=== PATIENT | female | born 1935 | race African-American/Black ===

== ENCOUNTER 2020-05-20 15:47 | Emergency (ER) | payer MEDICARE, BC ==
[~2020-05-20] VITALS: Ht 167.6 cm; Wt 80.0 kg
[2020-05-20] MEDS ORDERED: IV NORMAL SALINE 1000ML BAG 1,000 ML IV ONE (16:00)
[2020-05-20] MEDS ORDERED: ACETAMINOPHEN 500 MG TABLET PO ONE (16:00)
[2020-05-20] MEDS ORDERED: cefTRIAXone IV Push 1 GM VIAL. IVP ONE (16:00)
--- NOTE | 2020-05-20 16:06 | PHYS DOC ---
Past Medical History Past Medical History: Dementia Drug Use: None Social History Narrative: from [facility] General Adult EDM: Chief Complaint: URINARY FREQUENCY HPI: HPI: Patient is a 85 year old female who arrives via EMS from [facility] with a chief complaint of malodorous urine. Patient has a history of dementia therefore history, physical review of systems are all limited due to altered mental status. Patient does complain of some lower abdominal pain on exam. But she is unable to quantify or qualify the pain. Patient was found to have a low-grade temperature of 99 earlier today. Patient had 2 - Covid test within the last 3 days. Review of Systems: Review of Systems: Constitutional: Nursing facility reports low-grade temperature of 99 Eyes: Denies change in visual acuity. [] HENT: Denies nasal congestion or sore throat. [] Respiratory: Denies cough or shortness of breath. [] Cardiovascular: Denies chest pain or edema. [] GI: Patient complains of lower abdominal pain but no vomiting or diarrhea : Patient has malodorous urine Musculoskeletal: Denies back pain or joint pain. [] Integument: Denies rash. [] Neurologic: Denies headache, focal weakness or sensory changes. [] Endocrine: Denies polyuria or polydipsia. [] Lymphatic: Denies swollen glands. [] Psychiatric: Denies depression or anxiety. [] Heart Score: Risk Factors: Risk Factors: DM, Current or recent (<one month) smoker, HTN, HLP, family history of CAD, obesity. Risk Scores: Score 0 - 3: 2.5% MACE over next 6 weeks - Discharge Home Score 4 - 6: 20.3% MACE over next 6 weeks - Admit for Clinical Observation Score 7 - 10: 72.7% MACE over next 6 weeks - Early Invasive Strategies Current Medications: Current Medications Medications (Trade) Dose Ordered Sig/Evans Start Time Stop Time Status Last Admin Dose Admin Acetaminophen (Tylenol) 1,000 mg 1X ONCE 05/20/20 16:00 05/20/20 16:01 UNV Ceftriaxone Sodium (Rocephin) 1 gm 1X ONCE 05/20/20 16:00 05/20/20 16:01 UNV Sodium Chloride 1,000 ml @ 1,000 mls/hr 1X ONCE 05/20/20 16:00 05/20/20 16:59 UNV Physical Exam: PE: Constitutional: Well developed, well nourished, no acute distress, non-toxic appearance. [] HENT: Normocephalic, atraumatic, bilateral external ears normal, no trismus nose normal. [] Eyes: PERRLA, EOMI, conjunctiva normal, no discharge. [] Neck: Normal range of motion, no tenderness, supple, no stridor. [] Cardiovascular:Heart rate regular rhythm, peripheral pulse intact cap refills less than 2 seconds Lungs & Thorax: Bilateral breath sounds clear, no respiratory distress Abdomen: Soft with lower abdominal tenderness without guarding or rebound, no masses, no pulsatile masses. [] Skin: Warm, dry, no erythema, no rash. [] Back: No tenderness, no CVA tenderness. [] Extremities: No tenderness, no cyanosis, no clubbing, ROM intact, no edema. [] Neurologic: Alert and oriented X 1, normal motor function, normal sensory function, no focal deficits noted. [] Psychologic: Affect normal, judgement normal, mood normal. [] Current Patient Data: Labs: Laboratory Tests Test 05/20/20 16:18 05/20/20 16:30 Urine Collection Type Unknown Urine Color Yellow Urine Clarity Clear Urine pH 5.5 Urine Specific [place] 1.015 Urine Protein 30 mg/dL Urine Glucose (UA) Negative mg/dL Urine Ketones (Stick) Negative mg/dL Urine Blood Moderate Urine Nitrite Negative Urine Bilirubin Negative Urine Urobilinogen Dipstick 0.2 mg/dL Urine Leukocyte Esterase Negative Urine RBC 0 /HPF Urine WBC 0 /HPF Urine Squamous Epithelial Cells Few /LPF Urine Bacteria 0 /HPF Urine Mucus Mod /LPF White Blood Count 4.9 x10^3/uL Red Blood Count 4.33 x10^6/uL Hemoglobin 13.3 g/dL Hematocrit 40.2 % Mean Corpuscular Volume 93 fL Mean Corpuscular Hemoglobin 31 pg Mean Corpuscular Hemoglobin Concent 33 g/dL Red Cell Distribution Width 16.7 % Platelet Count 132 x10^3/uL Neutrophils (%) (Auto) 76 % Lymphocytes (%) (Auto) 17 % Monocytes (%) (Auto) 6 % Eosinophils (%) (Auto) 1 % Basophils (%) (Auto) 1 % Neutrophils # (Auto) 3.7 x10^3/uL Lymphocytes # (Auto) 0.8 x10^3/uL Monocytes # (Auto) 0.3 x10^3/uL Eosinophils # (Auto) 0.0 x10^3/uL Basophils # (Auto) 0.0 x10^3/uL Sodium Level 141 mmol/L Potassium Level 4.7 mmol/L Chloride Level 105 mmol/L Carbon Dioxide Level 27 mmol/L Anion Gap 9 Blood Urea Nitrogen 32 mg/dL Creatinine 1.9 mg/dL Estimated GFR (Cockcroft-Gault) 25.2 BUN/Creatinine Ratio 17 Glucose Level 95 mg/dL Lactic Acid Level 1.2 mmol/L Calcium Level 10.3 mg/dL Total Bilirubin 0.4 mg/dL Aspartate Amino Transf (AST/SGOT) 30 U/L Alanine Aminotransferase (ALT/SGPT) 48 U/L Alkaline Phosphatase 94 U/L Total Protein 8.4 g/dL Albumin 4.4 g/dL Albumin/Globulin Ratio 1.1 Lipase 84 U/L Current Medications Medications (Trade) Dose Ordered Sig/Evans Route PRN Reason Start Time Stop Time Status Last Admin Dose Admin Ceftriaxone Sodium (Rocephin) 1 gm 1X ONCE IVP 05/20/20 16:00 05/20/20 16:47 DC Sodium Chloride 1,000 ml @ 1,000 mls/hr 1X ONCE IV 05/20/20 16:00 05/20/20 16:59 DC Acetaminophen (Tylenol) 1,000 mg 1X ONCE PO 05/20/20 16:00 05/20/20 16:47 DC Vital Signs: Vital Signs Date Time Temp Pulse Resp B/P (MAP) Pulse Ox O2 Delivery O2 Flow Rate FiO2 05/20/20 16:07 98.5 18 130/89 (103) 100 Room Air 98.5 EKG: EKG: EKG interpreted by me normal sinus rhythm with rate 82 left axis deviation, left anterior block, right bundle branch block, nonspecific ST changes, QTC of 492 [] Radiology/Procedures: Radiology/Procedures: [][facility] [address] [place] [address] IMAGING REPORT Signed PATIENT: LARRY DAVID ACCOUNT: [id number] : 1935 LOCATION: ER AGE: 85 SEX: F EXAM STATUS: PRE ER ORD. PHYSICIAN: SANTINO ROD MD REASON: fever 16 PROCEDURE: PORTABLE CHEST 1V Examination: XR CHEST 1V History: Reason: fever Comparison/Correlation: None Findings: Portable upright frontal view of the chest was obtained. Heart size and pulmonary vascular structures are unremarkable. No infiltrate or effusion. No pneumothorax. Bony structures are unremarkable. Impression: No active disease. Electronically signed by: Abdirizak Hudson MD (05/20/2020 4:48 PM) [id number] DICTATED and SIGNED BY: ABDIRIZAK HUDSON MD DATE: 05/20/20 [id number] 0 Course & Med Decision Making: Course & Med Decision Making Pertinent Labs and Imaging studies reviewed. (See chart for details) [] 85-year-old female presents with malodorous urine. Patient baseline dementia and appears to be at her neurological baseline. Patient's work-up is reassuring other than minor renal insufficiency. Patient reportedly had a fever but is afebrile here and has a normal white count. Clinically doubt sepsis. Patient is stable for discharge and outpatient follow-up return precautions given on discharge instructions. Dragon Disclaimer: [employer] Disclaimer: This electronic medical record was generated, in whole or in part, using a voice recognition dictation system. Departure Departure Impression: Primary Impression: Urinary frequency Disposition: 01 DC HOME SELF CARE/HOMELESS Condition: STABLE Referrals: pcp 2-3 days Patient Instructions: Urinary Frequency Additional Instructions: EMERGENCY DEPARTMENT GENERAL DISCHARGE INSTRUCTIONS THANK YOU for coming to [facility] Emergency Department (ED) today and trusting us with your care. We trust that you had a positive experience in our Emergency Department. If you wish to speak to the department Management you can contact the veneer department manager at . YOUR FOLLOW UP INSTRUCTIONS ARE FOLLOWS: Do you have a private doctor? If you do not have a private doctor, please ask for a resource list of physicians or clinics that may be able to assist you with follow up care. The Emergency Physician has interpreted your x-rays. The X-ray specialist will also review them. If there is a change in the findings you will be notified in 48 hours when at all possible. A lab test or lab culture may have been done, your results will be reviewed and you will be notified if you need a change in treatment. ADDITIONAL INSTRUCTIONS AND INFORMATION Your care today has been supervised by a physician who is specially trained in emergency care. Many problems require more than one evaluation for a complete diagnosis and treatment. We recommend that you schedule your follow up appointment as recommended to ensure complete treatment of your illness or injury. If you are unable to obtain follow up care and continue to have a problem, or if your condition worsens we recommend that you return to the ED. We are not able to safely determine your condition over the phone nor are we able to give sound medical advice over the phone. For these safety reasons, if you call for medical advice we will ask you to come to the ED for further evaluation If you have any questions regarding these discharge instructions please call the ED at . SAFETY INFORMATION In the interest of safety, wellness, and injury prevention; we encourage you to wear your seatbelt, if you smoke; quit smoking, and we encourage your family to use protective helmet for bicycling and other sporting events that present an increased risk for head injury. IF YOUR SYMPTOMS WORSEN OR NEW SYMPTOMS DEVELOP, OR YOU HAVE CONCERNS ABOUT YOUR CONDITION; OR IF YOUR CONDITION WORSENS WHILE YOU ARE WAITING FOR YOUR FOLLOW UP APPOINTMENT; EITHER CONTACT YOUR PRIMARY CARE DOCTOR, THE PHYSICIAN WHOSE NAME AND NUMBER YOU WERE GIVEN, OR RETURN TO THE ED IMMEDIATELY. SANTINO ROD MD May 20, 2020 16:06
[2020-05-20 16:30] LABS: BILIRUBIN,URINE NEGATIVE (NEG); CLARITY,URINE CLEAR; COLOR,URINE YELLOW; NITRITE,URINE NEGATIVE (NEG); PH,URINE 5.5 (<5.0-8.0); PROTEIN,URINE 30 mg/dL (NEG-TRACE); UROBILINOGEN,URINE 0.2 mg/dL (0.2 mg/dL)
[2020-05-20 16:42] LABS: BASO % 1 % (0-3); EOS % 1 % (0-3); HEMATOCRIT 40.2 % (36.0-47.0); HEMOGLOBIN 13.3 g/dL (12.0-15.5); LYMPH # 0.8 x10^3/uL (1.0-4.8); LYMPH % 17 % (24-48); MEAN CORPUSCULAR HEMOGLOBIN 31 pg (25-35); MEAN CORPUSCULAR HGB CONC 33 g/dL (31-37); MEAN CORPUSCULAR VOLUME 93 fL (79-100); MONO # 0.3 x10^3/uL (0.0-1.1); MONO % 6 % (0-9); NEUT # 3.7 x10^3/uL (1.8-7.7); NEUT % 76 % (31-73); PLATELET COUNT 132 x10^3/uL (140-400); RED BLOOD COUNT 4.33 x10^6/uL (3.50-5.40); RED CELL DISTRIBUTION WIDTH 16.7 % (11.5-14.5); WHITE BLOOD COUNT 4.9 x10^3/uL (4.0-11.0)
[2020-05-20 16:49] LABS: BACTERIA,URINE 0 /HPF (0-FEW); RBC,URINE 0 /HPF (0-2); WBC,URINE 0 /HPF (0-4)
--- NOTE | 2020-05-20 16:50 | RAD ---
Examination: XR CHEST 1V History: Reason: fever Comparison/Correlation: None Findings: Portable upright frontal view of the chest was obtained. Heart size and pulmonary vascular structures are unremarkable. No infiltrate or effusion. No pneumothorax. Bony structures are unremark able. Impression: No active disease. Electronically signed by: Abdirizak Tyson MD (05/20/2020 4:48 PM) [id number]
[2020-05-20 16:53] LABS: CALCIUM 10.3 mg/dL (8.5-10.1); CREATININE 1.9 mg/dL (0.6-1.0); GFR 25.2; POTASSIUM 4.7 mmol/L (3.5-5.1)
[2020-05-20 16:59] LABS: ALBUMIN 4.4 g/dL (3.4-5.0); ALBUMIN/GLOBULIN RATIO 1.1 (1.0-1.7); TOTAL BILIRUBIN 0.4 mg/dL (0.2-1.0); TOTAL PROTEIN 8.4 g/dL (6.4-8.2)
[2020-05-20 17:24] VITALS: BP 128/69
--- NOTE | 2020-05-21 11:07 | EKG ---
[facility] [address] [place] [address] Test Date: 2020-05-20 Test Time: 16:48:26 Pat Name: LARRY DAVID Department: Room: Gender: F Territory Service Representative: : 1935 Requested By: SANTINO ROD Order Number: [id number] Reading MD: Measurements Intervals [place] Rate: 82 P: 26 CO: 160 QRS: -53 QRSD: 128 T: 21 QT: 418 QTc: 492 Interpretive Statements SINUS RHYTHM ABNORMAL LEFT AXIS DEVIATION LEFT ANTERIOR FASCICULAR BLOCK RIGHT BUNDLE BRANCH BLOCK BIFASCICULAR BLOCK QRS(T) CONTOUR ABNORMALITY CONSIDER ANTEROSEPTAL MYOCARDIAL DAMAGE ABNORMAL ECG RI6.02 No previous ECG available for comparison
== END 2020-05-20 17:45 | disposition home or self-care (01) ==
LOC: ER 15:47
DX: R35.0 Frequency of micturition (principal); R10.30 Lower abdominal pain, unspecified; F03.90 Unspecified dementia, unspecified severity, without behavioral disturbance, psychotic disturbance, mood disturbance, and anxiety; R41.82 Altered mental status, unspecified
CPT/HCPCS: 36415; 71045; 80053; 81001; 83605; 83690; 85025; 87040; 93005; 96360; 99285; J7030; P9612